=== PATIENT | male | born 1960 | race Caucasian/White ===

== ENCOUNTER 2019-06-01 11:18 | Emergency (ER) | payer MEDICAID, OTHER ==
[~2019-06-01] VITALS: Ht 180.3 cm; Wt 99.2 kg
[2019-06-01] MEDS ORDERED: SODIUM CHLORIDE FLUSH 10ML SYR IVF ONE (12:00)
--- NOTE | 2019-06-01 12:05 | NUR ---
BREAK RN: PT TO ROOM FROM LOBBY. ATTEMPT CONTACT WITH PT. PT ON PHONE "CAN YOU GIVE ME A MINUTE. THANKS"
[2019-06-01 12:24] LABS: BASOPHILS # (AUTO) 0.08 x10^3/uL (0-0.1); BASOPHILS % (AUTO) 1 % (0-1); EOSINOPHILS # (AUTO) 0.14 x10^3/uL (0-0.4); EOSINOPHILS % (AUTO) 1 % (1-7); LYMPHOCYTES # (AUTO) 3.77 x10^3/uL (1-3.4); LYMPHOCYTES % (AUTO) 30 % (22-44); MD NO; MEAN CORPUSCULAR HEMOGLOBIN 30.9 pg (27.5-34.5); MEAN CORPUSCULAR HGB CONC 32.9 g/dL (33.2-36.2); MEAN CORPUSCULAR VOLUME 93.9 fL (81-97); MEAN PLATELET VOLUME 6.2 fL (7.4-10.4); MONOCYTES # (AUTO) 0.68 x10^3/uL (0.2-0.8); MONOCYTES % (AUTO) 5 % (2-9); NEUTROPHILS # (AUTO) 8.07 x10^3/uL (1.8-6.8); NEUTROPHILS % (AUTO) 63 % (42-75); PLATELET COUNT 313 x10^3/uL (130-400); RED BLOOD COUNT 5.78 x10^6/uL (4.38-5.82); RED CELL DISTRIBUTION WIDTH 14.6 % (9.4-14.8)
--- NOTE | 2019-06-01 12:24 | NUR ---
58 YR OLD MALE SENT TO ER FROM [facility], R/T HYPERTENSION 200/116. PT DENIES HX OF HTN. PT PLACED ON MONITORS. IV STARTED. PT VASO VAGEL EPISODE WITH IV START. BP 111/80. DR WEBB NOTIFIED. REPORT TO JOEL PEARL
[2019-06-01] MEDS ORDERED: hydrALAzine 20 MG/ML, 1ML IV ONE (12:30)
[2019-06-01 12:38] LABS: ALBUMIN 4.7 g/dL (3.4-5.0); ANION GAP 6 mmol/L (5-15); CALCIUM 9.7 mg/dL (8.5-10.1); CHLORIDE 101 mmol/L (98-107); CREATININE 1.07 mg/dL (0.7-1.3)
[2019-06-01] MEDS ORDERED: hydrALAzine 20 MG/ML, 1ML ONE (12:41)
[2019-06-01] MEDS ORDERED: LISINOPRIL 10 MG TABLET ONE (12:48)
[2019-06-01] MEDS ORDERED: LISINOPRIL 10 MG TABLET PO ONE (13:00)
--- NOTE | 2019-06-01 13:03 | NUR ---
report received from task RN Elsy, pt a&ox4, neuro intact, denies pain. resps even and unlabored. nsr on cardiac cath technologist with no ectopy. EDMD Maricruz notified of most recent bp and trend, pt had vasovagal reaction to PIV start per DAE Chin, however is now hypertensive again. MD ordered RN to admin 10mg po lisinopril, and cancel IV hydralazine. pt medicated per emar, tolerated well. awaiting response and dispo.
--- NOTE | 2019-06-01 14:00 | NUR ---
pt tolerated med well, pt a&o, resps even and unlabored, no s/sx adverse rxn. informed of repeat bp level. pt to be dc'd shortly.
[2019-06-01 14:18] VITALS: BP 167/99
--- NOTE | 2019-06-01 14:32 | NUR ---
pt given dc instructions and script, pt educated regarding lisinopril rx. pt a&o, resps even and unlabored, nsr on personnel monitor with no ectopy. piv dc'd with tip intact. pt amb to dc desk with steady gait, states he has pcp f/u already scheduled for 06/13/19.
== END 2019-06-01 14:33 | disposition home or self-care (01) ==
LOC: ED 13:36
DX: I10 Essential (primary) hypertension (principal); R51 Headache
CPT/HCPCS: 36415; 71045; 80048; 82040; 85025; 93005; 99284